=== PATIENT | male | born 1990 | race Caucasian/White ===

== ENCOUNTER 2023-10-21 18:31 | Emergency (ER) | payer OTHER ==
--- NOTE | 2023-10-21 18:47 | ED Physician Documentation ---
History of Present Illness - Stated complaint Stated Complaint: NUMBNESS IN FACE - Chief complaint Chief Complaint: General - Additonal information Additional information: 33-year-old male presents emergency department for numbness and tingling that has now fully resolved. Patient states over the last 2 days he has been having intermittent episode of decreased sensation to the top of both arms he describes it as a sunburn sensation as well as to his face and above his lip. He also has been experiencing it to bilateral lower extremities no weakness with ambulation no recent fevers or chills no chest pain no focal neurological deficits no dizziness able to ambulate with any difficulty. Patient says he has never had this happen before he does report that he is feeling quite anxious in the emergency department and says that he has a really hard time being around anyone medical or being in the hospital. PD PAST MEDICAL HISTORY - Past Medical History Past Medical History: Yes Cardiovascular: High cholesterol Respiratory: None Neuro: None Endocrine/Autoimmune: None GI: None : None HEENT: None Psych: None Musculoskeletal: None Derm: None - Past Surgical History Past Surgical History: No - Present Medications Home Medications: Ambulatory Orders Medication Instructions Recorded Confirmed Lisinopril [Zestril] 10 mg PO DAILY 10/21/23 10/21/23 - Allergies Allergies/Adverse Reactions: Allergies Allergy/AdvReac Type Severity Reaction Status Date / Time No Known Drug Allergies Allergy Verified 10/21/23 18:42 - Social History Does the pt smoke?: No Smoking Status: Never smoker Does the pt drink ETOH?: Yes Does the pt have substance abuse?: No - Immunizations Immunizations are current?: Yes - POLST Patient has POLST: No PD ED PE NORMAL - Vitals Vital signs reviewed: Yes - General General: Alert and oriented X 3, No acute distress, Well developed/nourished - HEENT HEENT: Atraumatic, PERRL - Respiratory Respiratory: No respiratory distress - Derm Derm: Normal color, Warm and dry, No rash - Neuro Neuro: Alert and oriented X 3, 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, No motor deficit, No sensory deficit, Normal speech Results - Vitals Vitals: Vital Signs - 24 hr 10/21/23 10/21/23 18:34 19:55 Temperature 37.1 C Heart Rate 124 H 121 H Respiratory 16 14 Rate Blood Pressure 173/91 H 142/74 H O2 Saturation 100 99 Oxygen O2 Source Room air - Labs Labs: Laboratory Tests 10/21/23 10/21/23 10/21/23 19:01 19:01 19:01 WBC 7.6 RBC 5.27 Hgb 15.6 Hct 48.2 MCV 91.5 MCH 29.6 MCHC 32.4 RDW 12.3 Plt Count 244 MPV 10.2 Neut # (Auto) 4.8 Lymph # (Auto) 2.0 Stewart # (Auto) 0.7 Eos # (Auto) 0.1 Baso # (Auto) 0.0 Absolute Nucleated RBC 0.00 Nucleated RBC % 0.0 Sodium 138 Potassium 3.3 L Chloride 101 Carbon Dioxide 27 Anion Gap 10.0 BUN 13 Creatinine 0.9 Estimated GFR (MDRD) 98 Glucose 118 H Calcium 9.7 Magnesium 1.7 Total Bilirubin 0.5 AST 22 ALT 47 Alkaline Phosphatase 57 Total Protein 7.5 Albumin 5.0 Globulin 2.5 Albumin/Globulin Ratio 2.0 Lipase 14 TSH 1.54 PD Medical Decision Making - ED course ED course: 33-year-old male presents emergency department for numbness and tingling sensation that has now fully resolved. Patient says that he is very anxious because he has some enlarged lymph nodes that has been told are benign but he is feeling very anxious about having that worked up. He says for the most part he feels like the numbness and tingling has now fully resolved. Labs are complete for further evaluation no leukocytosis no anemia he is very minimally suppressed hypokalemia and 20 mEq of potassium was given for replacement. He has hypokalemia could be what is contributing to his mild numbness tingling sensation. At this point in time I do not believe there is any further emergent workup indicated at this time. He denies any chest pain or shortness of breath he does have tachycardia but does report that he gets very anxious when coming to the emergency department responding time around any medical technologist hematology. Patient was told to follow-up with his primary care provider for further evaluation if numbness and tingling were to come back. All questions answered return precautions given patient is safe for discharge at this time. Departure - Departure Disposition: 01 Home, Self Care Clinical Impression: Hypokalemia Instructions: Hypokalemia Dc, ED Potassium Deficiency Comments: Thank you for trusting us with your care. It is reassuring that your numbness and tingling has gone away. Your potassium is very slightly suppressed it was 3.3 today. Some people are very sensitive to low potassium so this could be what is causing or contributing to your numbness and tingling sensation. We have given you 20 mEq of potassium here in the emergency department and I have attached some paperwork with foods that have potassium in them to make sure that your potassium does not drop again. It is normal for potassium to drop after working out after sweating or not getting enough force of toileting and diet. Follow-up with your primary care provider as needed please come back to the ER for starting develop any shortness of breath chest pain weakness fevers chills or any other concerning emergent symptoms. Forms: PCP List
[2023-10-21 19:07] LABS: BASOPHILS % (AUTO) 0.5 %; EOSINOPHILS # (AUTO) 0.1 10^3/uL (0.0-0.7); EOSINOPHILS % (AUTO) 1.3 %; HCT - HEMATOCRIT 48.2 % (42.0-52.0); HGB - HEMOGLOBIN 15.6 g/dL (14.0-18.0); LYMPHOCYTES % (AUTO) 25.7 %; MEAN CORPUSCULAR HEMOGLOBIN 29.6 pg (27.0-31.0); MEAN CORPUSCULAR HGB CONC 32.4 g/dL (32.0-36.0); MEAN CORPUSCULAR VOLUME 91.5 fL (80.0-94.0); MEAN PLATELET VOLUME 10.2 fL (7.4-11.4); MONOCYTES # (AUTO) 0.7 10^3/uL (0.0-1.0); MONOCYTES % (AUTO) 8.7 %; NEUTROPHILS # (AUTO) 4.8 10^3/uL (1.5-6.6); NEUTROPHILS % (AUTO) 63.5 %; PLT - PLATELET COUNT 244 10^3/uL (130-450); RED BLOOD COUNT 5.27 10^6/uL (4.70-6.10); RED CELL DISTRIBUTION WIDTH 12.3 % (12.0-15.0); WHITE BLOOD COUNT 7.6 x10^3/uL (4.8-10.8)
[2023-10-21 19:15] LABS: MAGNESIUM 1.7 mg/dL (1.7-2.3)
[2023-10-21 19:21] LABS: BILIRUBIN,TOTAL 0.5 mg/dL (0.2-1.0); CALCIUM 9.7 mg/dL (8.5-10.3); CREATININE 0.9 mg/dL (0.6-1.3); POTASSIUM 3.3 mmol/L (3.5-4.5); TOTAL PROTEIN 7.5 g/dL (6.4-8.9)
[2023-10-21] MEDS: POTASSIUM CHLORIDE 20 MEQ TABLET PO STA (20:07)
[2023-10-21 20:22] VITALS: BP 134/72; O2SAT 100
== END 2023-10-21 20:13 | disposition home or self-care (01) ==
LOC: ED 18:31
DX: E87.6 Hypokalemia (principal); E78.00 Pure hypercholesterolemia, unspecified
CPT/HCPCS: 36415; 80053; 83690; 83735; 84443; 85025; 99283; 99284; A9270